=== PATIENT | female | born 1985 | race Caucasian/White ===

== ENCOUNTER 2017-10-17 07:49 | Inpatient (IN) | payer MEDICAID ==
[2017-10-17] MEDS ORDERED: Penicillin G Potassium IV* 5,000,000 UNITS in NS 0.9% 100 ML* 100 ML IVPB ONE (07:56)
[2017-10-17 08:53] LABS: ABS Basophils 0 10^3/ul (0-0.2); ABS Eosinophils 0.1 10^3/ul (0-0.6); ABS Lymphocytes 1.7 10^3/ul (1.0-4.8); ABS Monocytes 0.6 10^3/ul (0-0.8); ABS Neutrophils 6.3 10^3/ul (1.5-7.7); ABS Nucleated RBC 0 10^3/ul; Eosinophil % 0.7 % (0-6); Hematocrit 35 % (35-47); Lymphocyte % 19.9 % (25-47); Mean Corpuscular HGB Conc 35 g/dl (31-36); Mean Corpuscular Hemoglobin 30 pg (27-31); Mean Corpuscular Volume 85 fL (80-97); Mean Platelet Volume 10 um3 (7.4-10.4); Nucleated Red Blood Cells % 0; Platelet Count 203 10^3/ul (150-450); Red Blood Count 4.06 10^6/ul (4.0-5.4); Red Cell Distribution Width 16 % (10.5-15); White Blood Count 8.7 10^3/ul (3.5-10.8)
[2017-10-17] MEDS ORDERED: Oxytocin in LR* 20 UNITS/1,000 ML BAG IVPB SCH (10:00)
[2017-10-17] MEDS: Penicillin G Potassium IV* 2,500,000 UNITS in NS 0.9% 100 ML* 100 ML IVPB SCH ×2 (12:30→18:20)
[2017-10-17] MEDS ORDERED: Calcium Carbonate CHEW TAB* 500 MG (TUMS) PO PRN (15:01)
[2017-10-17] MEDS ORDERED: Phenylephrine IV* 40 MCG/ML 10 ML SYRINGE ONE (16:48)
[2017-10-17] MEDS ORDERED: OBEPIDURAL* 0 ML EPIDURAL ONE (16:54)
[2017-10-17] MEDS ORDERED: Tetan/Diph/Pertus SYR(Tdap)* 0.5 ML SYR(BOOSTRIX) use SYR IM ONE (17:29)
[2017-10-17] MEDS ORDERED: Witch Hazel PAD* JAR TOPICAL PRN (17:29)
[2017-10-17] MEDS ORDERED: Dibucaine 1% 28.35 GM TUBE PR PRN (17:29)
[2017-10-17] MEDS ORDERED: Glycerin ADULT SUPP PR PRN (17:29)
[2017-10-17] MEDS: Simethicone TAB* 80 MG TAB.CHEW PO SCH ×2 (17:30→22:42)
--- NOTE | 2017-10-17 17:36 | HP ---
General Information - General Information Maternal Age: 32 Grav: 3 Para: 1 SAB: 1 IEA: 0 Estimated Due Date: 10/08/17 Determined By: LMP Gestational Age in Weeks and Days: 41 Weeks and 2 Days Maternal Blood Type and Rh: A Positive - Results this Serology/RPR Result: Non-Reactive Rubella Result: Immune HBsAg Result: Negative HIV Result: Negative GBS Culture Result: Positive Past Medical History Delivery History: Hx Uncomplicated Vaginal Delivery, See Records Pertinent Past Medical History: See Records Pertinent Past Surgical History: See Records Pertinent Family History: See Records - Antepartal Records Antepartal Records: Reviewed, Complicated by: - Postdates , Maternal obesity, GBS positive culture Review of Systems Constitutional: Comfortable CV Complaint: No Respiratory: Shortness of Breath: No Gastrointestinal: No Nausea/Vomiting, Normal Bowel Movement Genitourinary: No Dysuria, No Bleeding, No Leaking Fluid Musculoskeletal: No Complaint Neurological: No Headache, No Visual Changes Movement: Normal Exam Allergies/Adverse Reactions: Allergies No Known Allergies Allergy (Verified 06/02/14 11:36) Vital Signs 10/17/17 10/17/17 10/17/17 08:10 12:05 16:00 Temperature 98.1 F 98.3 F 98.3 F Pulse Rate 94 88 92 Respiratory 17 16 17 Rate Blood Pressure 127/78 122/71 121/78 (mmHg) O2 Sat by Pulse 100 Oximetry Lab Values - Entire Visit: Laboratory Tests 10/17/17 10/17/17 08:40 08:40 WBC 8.7 RBC 4.06 Hgb 12.0 Hct 35 MCV 85 MCH 30 MCHC 35 RDW 16 H Plt Count 203 MPV 10 Neut % (Auto) 72.1 Lymph % (Auto) 19.9 L [place] % (Auto) 6.8 Eos % (Auto) 0.7 Baso % (Auto) 0.5 Absolute Neuts (auto) 6.3 Absolute Lymphs (auto) 1.7 Absolute Monos (auto) 0.6 Absolute Eos (auto) 0.1 Absolute Basos (auto) 0 Absolute Nucleated RBC 0 Nucleated RBC % 0 Blood Type A Positive Antibody Screen Negative - Measurements Height: 5 ft 4 in Weight: 252 lb Weight in lbs: 252 Body Mass Index (BMI): 43.2 Pre- Weight: 232 lb Weight Gained This : 20 lbs and 0 ozs - Exam Abdomen: No Upper Quadrant Pain Breast: Breast Exam Deferred CVA: No CVA Tenderness Extremities: No Edema Heart: Normal Rhythm/Heart Sounds HEENT: No Significant Findings Lungs: Clear Bilaterally Rectal: Rectal Exam Deferred EFM Findings - External Monitor Findings External Monitor Findings: Accelerations Present Contractions: Mild Assessment/Plan - Reason for Visit Reason for Visit: Postdates , maternal obesity, GBS positive - Obstetrical Risk Factors Obstetrical Risk Factors: GBS Positive, Post-Dates, Obesity - Plan Plan: Induction
[2017-10-17] MEDS: Acetaminophen TAB* 325 MG PO PRN (21:29)
[2017-10-17] MEDS: Ibuprofen TAB* 600 MG PO PRN (21:30)
[2017-10-17] MEDS: Docusate CAP* 100 MG PO SCH (21:30)
[2017-10-18] MEDS: Ibuprofen TAB* 600 MG PO PRN ×3 (05:17→18:41)
[2017-10-18] MEDS: Acetaminophen TAB* 325 MG PO PRN ×2 (05:17→09:49)
[2017-10-18 07:04] LABS: ABS Basophils 0 10^3/ul (0-0.2); ABS Eosinophils 0 10^3/ul (0-0.6); ABS Lymphocytes 1.7 10^3/ul (1.0-4.8); ABS Monocytes 0.5 10^3/ul (0-0.8); ABS Neutrophils 7.8 10^3/ul (1.5-7.7); ABS Nucleated RBC 0 10^3/ul; Eosinophil % 0.3 % (0-6); Hematocrit 35 % (35-47); Lymphocyte % 16.6 % (25-47); Mean Corpuscular HGB Conc 34 g/dl (31-36); Mean Corpuscular Hemoglobin 30 pg (27-31); Mean Corpuscular Volume 87 fL (80-97); Mean Platelet Volume 10 um3 (7.4-10.4); Nucleated Red Blood Cells % 0.1; Platelet Count 192 10^3/ul (150-450); Red Blood Count 4.04 10^6/ul (4.0-5.4); Red Cell Distribution Width 16 % (10.5-15); White Blood Count 10.1 10^3/ul (3.5-10.8)
[2017-10-18] MEDS ORDERED: Ferrous Gluconate TAB* 324 MG TAB PO SCH (09:00)
[2017-10-18] MEDS: Docusate CAP* 100 MG PO SCH ×3 (09:48→20:10)
[2017-10-19 07:54] VITALS: BP 126/65
[2017-10-19] MEDS: Ibuprofen TAB* 600 MG PO PRN (08:45)
[2017-10-19] MEDS: Docusate CAP* 100 MG PO SCH (08:45)
== END 2017-10-19 11:29 | disposition home or self-care (01) | DRG 560 ==
LOC: MCHOBOUT 07:49 → MCHOB 08:06
PROVIDERS: ADMIT Obstetrics & Gynecology; ATTEND Midwife
PROC: 10E0XZZ Delivery of Products of Conception, External Approach (ICD-10-PCS; principal; 2017-10-17)
PROC: 4A1HXCZ Monitoring of Products of Conception, Cardiac Rate, External Approach (ICD-10-PCS; 2017-10-17)
PROC: 0HQ9XZZ Repair Perineum Skin, External Approach (ICD-10-PCS; 2017-10-17)
PROC: 3E0P3VZ Introduction of Hormone into Female Reproductive, Percutaneous Approach (ICD-10-PCS; 2017-10-17)
DX: O48.0 Post-term pregnancy (principal); Z68.41 Body mass index [BMI] 40.0-44.9, adult; O99.214 Obesity complicating childbirth; O70.0 First degree perineal laceration during delivery; E66.9 Obesity, unspecified; O99.824 Streptococcus B carrier state complicating childbirth; Z3A.41 41 weeks gestation of pregnancy; Z37.0 Single live birth
CPT/HCPCS: 36415; 85025; 86850; 86900; 86901; A9270-GY; J2540

== ENCOUNTER 2019-11-03 21:01 | Emergency (ER) | payer BC ==
--- NOTE | 2019-11-03 21:09 | UC ---
Throat Pain/Nasal Efrain HPI - HPI Summary HPI Summary: 34yo female presenting with sore throat since last night. Patient states she started having chills, headache, and fever of 103 today. Denies nasal congestion and cough. Denies n/v. Denies sob and wheezing. Normal appetite and fluid intake. Taking acetaminophen with some relief of fever. Denies ill contacts but states she has been ill "all winter" noting she had the flu and strep a month or two back. - History of Current Complaint Stated Complaint: SORE THROAT, CHILLS, HEADACHE Hx Obtained From: Patient Hx Last Menstrual Period: 04/03/16 - Allergies/Home Medications Allergies/Adverse Reactions: Allergies Allergy/AdvReac Type Severity Reaction Status Date / Time No Known Allergies Allergy Verified 06/02/14 11:36 Home Medications: Home Medications Vitamin TAB* 1 tab PO DAILY MDD 1 10/17/17 [History Confirmed 10/17/17] Penicillin VK 500 MG TAB(NF) [Penicillin VK 500 mg Tab] 500 mg PO BID #19 tab [Rx] PMH/Surg Hx/FS Hx/Imm Hx Previously Healthy: Yes - Surgical History Surgical History: None - Family History Known Family History: Positive: Cardiac Disease - Sister had a MS at 22 y/o Family History: Lung CA - Social History Alcohol Use: None Substance Use Type: None Smoking Status (MU): Never Smoked Tobacco Have You Smoked in the Last Year: No - Immunization History Most Recent Influenza Vaccination: unkown Most Recent Tetanus Shot: unknown Most Recent Pneumonia Vaccination: none Review of Systems All Other Systems Reviewed And Are Negative: Yes Constitutional: Positive: Fever, Chills, Fatigue ENT: Positive: Sore Throat Respiratory: Positive: Negative Cardiovascular: Positive: Negative Gastrointestinal: Positive: Negative Musculoskeletal: Positive: Negative Neurological/Mental Status: Positive: Headache Physical Exam - Summary Physical Exam Summary: Vital Signs Reviewed: Yes A+Ox3, no distress Eyes: Conjunctiva Clear ENT: Hearing grossly normal, TM x 2 clear, moist, uvula midline, no exudate, + pharyngeal erythema Neck: Positive: Supple, mild tonsillar node enlargement Respiratory: Positive: No respiratory distress, No accessory muscle use + CTA throughout no w/r Cardiovascular: tachycardia, regular rhythm nl s1, s2 no m/r Musculoskeletal Exam: MURILLO x 4 without difficulty Neurological: Positive: Alert Psychological: Positive: age appropriate behavior Skin: Positive: no rash, no ecchymosis Throat Pain/Nasal Course/Dx - Course Course Of Treatment: Positive rapid strep test. Negative flu. I treated patient with penicillin vk and instructed to continue with symptomatic treatment. Instructed to return or follow up with pcp if symptoms persist. Patient voiced understanding and agreed with treatment plan. - Differential Dx/Diagnosis Provider Diagnosis: Strep pharyngitis Discharge ED - Sign-Out/Discharge Documenting (check all that apply): Patient Departure All imaging exams completed and their final reports reviewed: No Studies - Discharge Plan Condition: Stable Disposition: HOME Prescriptions: Penicillin VK 500 MG TAB(NF) [Penicillin VK 500 mg Tab] 500 mg PO BID #19 tab Patient Education Materials: Strep Throat (ED) Referrals: No Primary Care Phys,NOPCP [Primary Care Provider] - Additional Instructions: As discussed, you tested positive for strep throat today. Take penicillin as prescribed for the treatment of strep throat. You received the first dose tonight and the remainder of your prescription has been sent to your pharmacy. You may take ibuprofen and/or tylenol as directed for fever and pain relief. You may use over the counter throat sprays or lozenges for symptomatic relief. Get plenty of rest and fluids. Return or follow up with your primary care provider if symptoms persist. - Billing Disposition and Condition Condition: STABLE Disposition: Home
[2019-11-03] MEDS ORDERED: Penicillin VK TAB* 250 MG PO ONE (21:41)
[2019-11-03 21:50] LABS: Influenza A Molecular Negative (Negative); Influenza B Molecular Negative (Negative)
== END 2019-11-03 21:58 | disposition home or self-care (01) ==
LOC: UCEAST 21:01
DX: J02.0 Streptococcal pharyngitis (principal)
CPT/HCPCS: 87651; 99201; A9270-GY; G0463